=== PATIENT | female | born 1980 | race Caucasian/White ===

== ENCOUNTER 2017-12-04 19:06 | Emergency (ER) | payer OTHER ==
[~2017-12-04] VITALS: Ht 165.1 cm; Wt 113.8 kg
[2017-12-04 21:45] VITALS: BP 134/86
== END 2017-12-04 21:46 | disposition home or self-care (01) ==
LOC: EME 19:06
DX: S80.01XA Contusion of right knee, initial encounter (principal); M32.9 Systemic lupus erythematosus, unspecified; V79.50XA Passenger on bus injured in collision with unspecified motor vehicles in traffic accident, initial encounter; Y92.410 Unspecified street and highway as the place of occurrence of the external cause
CPT/HCPCS: 73552; 73564; 99281; 99284